=== PATIENT | female | born 1965 | race Two or more races ===

== ENCOUNTER 2020-08-01 19:35 | Emergency (ER) | payer BC, OTHER ==
[~2020-08-01] VITALS: Ht 170.2 cm; Wt 66.7 kg
[2020-08-01 20:16] LABS: BASOPHILS # (AUTO) 0.1 /CMM (0.0-0.2); BASOPHILS % (AUTO) 0.8 % (0.0-2.0); EOSINOPHILS % (AUTO) 3.6 % (0.0-6.0); HEMATOCRIT 41 % (33-45); HEMOGLOBIN 13.6 g/dL (11.5-14.8); LYMPHOCYTES # (AUTO) 1.5 /CMM (0.8-4.8); LYMPHOCYTES % (AUTO) 23.8 % (20.0-44.0); MEAN CORPUSCULAR HGB CONC 33 g/dl (31.0-36.0); MEAN CORPUSCULAR VOLUME 96 fL (82-100); MONOCYTES # (AUTO) 0.6 /CMM (0.1-1.30); MONOCYTES % (AUTO) 9.4 % (2.0-12.0); NEUTROPHILS # (AUTO) 3.8 /CMM (1.8-8.9); NEUTROPHILS % (AUTO) 62.4 % (43.0-81.0); PLATELET COUNT (AUTO) 307 /CMM (150-450); RED BLOOD CELL COUNT(AUTO) 4.34 MIL/uL (4.0-5.2); WHITE BLOOD COUNT (AUTO) 6.2 K/uL (4.3-11.0)
[2020-08-01] MEDS ORDERED: LORAZEPAM 1 MG TABLET ONE (20:17)
[2020-08-01] MEDS: LORAZEPAM 1 MG TABLET PO ONE (20:20)
[2020-08-01 20:28] LABS: CARBON DIOXIDE 24 mmol/L (21-32); CHLORIDE 104 mmol/L (98-107); CREATININE 0.7 mg/dL (0.6-1.3); GLUCOSE 99 mg/dL (74-106); POTASSIUM 3.6 mmol/L (3.5-5.1); SODIUM SERUM 139 mmol/L (136-145); UREA NITROGEN, BLOOD 18 mg/dL (7-18)
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
[2020-08-01 20:33] LABS: ALANINE AMINOTRANSFERASE 25 U/L (12-78); ALCOHOL, BLOOD < 3 mg/dL (0-0); ALKALINE PHOSPHATASE 67 U/L (46-116); ASPARTATE AMINOTRANSFERASE 24 U/L (15-37); BILIRUBIN,DIRECT 0.1 mg/dL (0.0-0.2); BILIRUBIN,TOTAL 0.3 mg/dL (0.2-1.0); TOTAL PROTEIN, SERUM 8.4 g/dL (6.4-8.2)
[2020-08-01 20:34] LABS: ACETAMINOPHEN < 0 ug/ml (10-30)
[2020-08-01 20:45] LABS: BILIRUBIN,URINE Negative (NEGATIVE); COLOR,URINE YELLOW (YELLOW); LEUKOCYTE ESTERASE ,URINE Negative (NEGATIVE); NITRITE, URINE Negative (NEGATIVE); PROTEIN,URINE Negative (NEGATIVE); UGLUCOSE Negative (NEGATIVE); UROBILINOGEN,URINE 0.2 EU/dL (0.2)
[2020-08-01 20:53] LABS: BACTERIA,URINE Few /HPF (None Seen); SQUAMOUS EPITHELIAL CELL,UR Few /HPF (None Seen); WBC,URINE 0-2 /HPF (0-3)
--- NOTE | 2020-08-02 00:19 | NUR ---
CLINICAL AND FACESHEET FAXED TO [facility] INTAKE FOR VOLUNTARY PSYCH ADMISSION.
[2020-08-02] MEDS: LEVOTHYROXINE SODIUM 175 MCG TABLET ONE (01:52)
[2020-08-02] MEDS: LORAZEPAM 1 MG TABLET PO ONE (03:00)
[2020-08-02] MEDS: LEVOTHYROXINE SODIUM 75 MCG TABLET PO ONE (03:21)
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
--- NOTE | 2020-08-02 07:49 | NUR ---
The patient sleeping. Responsive to verbal stimuli. Patient is in no apparent distress. Will ccontinue to monitor the patient.
[2020-08-02] MEDS ORDERED: VENLAFAXINE XR 150 MG CAP.SR.24H ONE (09:28)
[2020-08-02] MEDS: SERTRALINE HCL 50 MG TABLET PO SCH (09:46)
[2020-08-02] MEDS: VENLAFAXINE XR 150 MG CAP.SR.24H PO ONE (09:46)
--- NOTE | 2020-08-02 09:46 | NUR ---
oncology social work at bedside speaking to patient.
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
--- NOTE | 2020-08-02 10:21 | NUR ---
The patient alert and oriented x4. Denies any distress. Watching something on her phone at this time.
--- NOTE | 2020-08-02 10:23 | NUR ---
CALLED TRANSPORT [facility] ETA 1143
--- NOTE | 2020-08-02 10:39 | NUR ---
JED faxed clinicals to [facility] FAX: [phone] TEL:[phone] EXT. [phone] for voluntary admission for psychiatric treatment.
--- NOTE | 2020-08-02 12:35 | NUR ---
[facility] However, pt. is now refusing voluntary placement. JED called [employer], Cachorro Bhandari [phone] to assess this patient. Cachorro stated he will assess the pt. ABDULKADIR. JED notified Magan Garay. SW will be available as needed.
--- NOTE | 2020-08-02 12:40 | NUR ---
[facility]. Noted.
--- NOTE | 2020-08-02 14:02 | NUR ---
Per Crisis Clinican, Cachorro the pt. is agreeing to go voluntarily to a [facility] for treatment. JED re-faxed clinicals to FAX:[phone] ATTN: Raffaele. SW will be available as needed.
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
--- NOTE | 2020-08-02 15:54 | NUR ---
ACCEPTED TO [facility] UNDER DR ROMERO NURSE TO NURSE REPORT [phone] EXT [phone]
--- NOTE | 2020-08-02 16:25 | NUR ---
Report given to nurse Sloan from [facility] Phone number [phone]
--- NOTE | 2020-08-02 16:31 | NUR ---
TRANSPORT [facility] CALLED ETA 1999 PER CHERYL
--- NOTE | 2020-08-02 16:37 | NUR ---
TRANSPORT CALLED ETA 30
[2020-08-02 17:26] VITALS: BP 114/63
--- NOTE | 2020-08-02 17:26 | NUR ---
THE PATIENT IS TRANSFERED TO [facility] IN STABLE CONDITION AND VIA ARRANGED TRANSPO.
== END 2020-08-02 17:27 ==
LOC: ER 19:37
DX: R45.851 Suicidal ideations (principal); E89.0 Postprocedural hypothyroidism; F32.9 Major depressive disorder, single episode, unspecified; Z20.822 Contact with and (suspected) exposure to COVID-19
CPT/HCPCS: 36415; 80048; 80076; 80143; 80307; 80320; 81001; 84703; 85025; 87426; 99285; C9803; G0480